=== PATIENT | male | born 1965 | race Caucasian/White ===

== ENCOUNTER → 2017-10-02 16:57 | Outpatient (CLI) | payer OTHER, SELFPAY ==
[2017-10-02 17:12] LABS: Absolute Lymphocyte Count 0.97 X10^3/ul (0.83-4.51); Absolute Neutrophil Count 7.9 X10^3/uL (2.0-7.7); Basophil# 0.05 X10^3/uL; Basophil% 0.5 % (0-1); Eosinophil# 0.71 X10^3/uL; Eosinophils% 6.7 % (0-5); Hematocrit 49.7 % (40-54); Hemoglobin 16.6 g/dl (13.0-16.5); Lymphocyte # 0.97 X10^3/ul (4.0); Lymphocyte % 9.2 % (19-41); Mean Corp Hgb Conc 33.4 g/gl (32-36); Mean Corpuscular Hgb 31.5 pg (27.0-32.0); Mean Corpuscular Volume 94.3 fL (80-94); Mean Platelet Vol. 11.7 fl (6.2-12.0); Monocyte# 0.93 X10^3/uL; Monocyte% 8.8 % (0-10); Neutrophil # 7.91 X10^3/uL (2.7-7.7); Neutrophil % 74.5 % (47-70); Platelet Count 270 K/mm3 (150-450); RBC Distribution Width CV 14.7 % (11.6-14.6); RBC Distribution Width SD 49.8 fl (35.1-43.9); Red Blood Count 5.27 M/mm3 (4.6-6.2); White Blood Count 10.6 K/mm3 (4.4-11.0)
[2017-10-02 17:16] LABS: POSITIVE COUNT NO; POSITIVE DIFFERENTIAL NO; POSITIVE MORPHOLOGY NO
[2017-10-02 17:34] LABS: PSA,Total - Annual Screen 1.92 ng/mL (0.00-4.00)
== END ==
PROVIDERS: Visit Provider Nurse Practitioner
DX: E29.1 Testicular hypofunction (principal)
CPT/HCPCS: 84153; 84403; 85025; G0103

== ENCOUNTER → 2017-11-13 07:58 | Outpatient (CLI) | payer OTHER, SELFPAY ==
[2017-11-13 14:07] LABS: Absolute Lymphocyte Count 0.72 X10^3/ul (0.83-4.51); Absolute Neutrophil Count 7.2 X10^3/uL (2.0-7.7); Basophil# 0.04 X10^3/uL; Basophil% 0.4 % (0-1); Eosinophils% 4.5 % (0-5); Hematocrit 52.1 % (40-54); Hemoglobin 17.4 g/dl (13.0-16.5); Lymphocyte # 0.72 X10^3/ul (4.0); Lymphocyte % 8.1 % (19-41); Mean Corp Hgb Conc 33.4 g/gl (32-36); Mean Corpuscular Hgb 31.6 pg (27.0-32.0); Mean Corpuscular Volume 94.6 fL (80-94); Mean Platelet Vol. 11.9 fl (6.2-12.0); Monocyte# 0.58 X10^3/uL; Monocyte% 6.5 % (0-10); Neutrophil # 7.16 X10^3/uL (2.7-7.7); Neutrophil % 80.2 % (47-70); Platelet Count 259 K/mm3 (150-450); RBC Distribution Width CV 13.8 % (11.6-14.6); RBC Distribution Width SD 47.3 fl (35.1-43.9); Red Blood Count 5.51 M/mm3 (4.6-6.2); White Blood Count 8.9 K/mm3 (4.4-11.0)
[2017-11-13 14:12] LABS: POSITIVE COUNT NO; POSITIVE DIFFERENTIAL NO; POSITIVE MORPHOLOGY NO
== END ==
PROVIDERS: Referring Provider Nurse Practitioner; Visit Provider Nurse Practitioner
DX: E29.1 Testicular hypofunction (principal)
CPT/HCPCS: 84403; 85025

== ENCOUNTER → 2017-12-18 16:01 | Outpatient (CLI) | payer OTHER, SELFPAY ==
[2017-12-18 16:51] LABS: Absolute Lymphocyte Count 0.78 X10^3/ul (0.83-4.51); Absolute Neutrophil Count 7.1 X10^3/uL (2.0-7.7); Basophil# 0.05 X10^3/uL; Basophil% 0.5 % (0-1); Eosinophil# 0.42 X10^3/uL; Eosinophils% 4.4 % (0-5); Hematocrit 52.5 % (40-54); Hemoglobin 17.3 g/dl (13.0-16.5); Lymphocyte # 0.78 X10^3/ul (4.0); Lymphocyte % 8.2 % (19-41); Mean Corpuscular Hgb 30.9 pg (27.0-32.0); Mean Corpuscular Volume 93.9 fL (80-94); Mean Platelet Vol. 11.7 fl (6.2-12.0); Monocyte# 1.03 X10^3/uL; Monocyte% 10.9 % (0-10); Neutrophil # 7.11 X10^3/uL (2.7-7.7); Neutrophil % 75.3 % (47-70); POSITIVE COUNT NO; POSITIVE DIFFERENTIAL NO; POSITIVE MORPHOLOGY NO; Platelet Count 232 K/mm3 (150-450); RBC Distribution Width CV 15.7 % (11.6-14.6); RBC Distribution Width SD 53.2 fl (35.1-43.9); Red Blood Count 5.59 M/mm3 (4.6-6.2); White Blood Count 9.5 K/mm3 (4.4-11.0)
== END ==
PROVIDERS: Referring Provider Nurse Practitioner; Visit Provider Nurse Practitioner
DX: E29.1 Testicular hypofunction (principal)
CPT/HCPCS: 84153; 84403; 85025

== ENCOUNTER → 2018-01-04 22:19 | Outpatient (CLI) | payer OTHER, SELFPAY ==
[2018-01-04 18:38] VITALS: BMI 31.3
[2018-01-04 23:21] LABS: Cholesterol 266 mg/dL (200); High Density Lipoprotein 37 mg/dL; Triglycerides 320 mg/dL; Very Low Density Lipoprotein 64 mg/dL (5-40)
--- OUTSIDE RECORDS SUMMARY | 2018-03-02 10:33 | XMS RPT_ITS ---
:1965 Author Organization [facility] Care Team Providers Name Role Phone Sony Perez Attending Unavailable PROVIDER, UNKNOWN Referring Unavailable Machelle Espitia Primary Care Unavailable Wing Espitiaa CONTROL SYSTEMS SPECIALIST-C Attending Unavailable Espitia, Machelle CONTROL SYSTEMS SPECIALIST-C Attending Unavailable Espitia, Machelle CONTROL SYSTEMS SPECIALIST-C Referring Unavailable Espitia, Machelle CONTROL SYSTEMS SPECIALIST-C Attending Unavailable Espitia, Machelle CONTROL SYSTEMS SPECIALIST-C Referring Unavailable Espitia, Machelle CONTROL SYSTEMS SPECIALIST-C Attending Unavailable Espitia, Machelle CONTROL SYSTEMS SPECIALIST-C Referring Unavailable PROBLEMS PROBLEMS DATE TYPE CONDITION / CODE ATTENDING STATUS SOURCE 01/05/2018 Unknown E78.00 - Pure Espitia, Active [facility] hypercholesterolem [place] [employer] SYSTEMS SPECIALIST-C Community ia, unspecified / Hospital E78.00(ICD-10) Repository 12/20/2017 Unknown 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, 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 / Machelle CONTROL SYSTEMS SPECIALIST-C Community E29.1(ICD-10) Hospital Repository 04/18/2017 Admitting Acute bronchitis, Tricaso, Active [facility] Diagnosis unspecified / [facility] J20.9(ICD-10) Repository 04/18/2017 Admitting Wheezing / Tricaso, Active [facility] Diagnosis R06.2(ICD-10) [facility] Repository 04/18/2017 Admitting Cough / Tricaso, Active [facility] Diagnosis R05(ICD-10) [facility] Repository 04/18/2017 Admitting Essential Tricaso, Active [facility] Diagnosis (primary) [facility] hypertension / Repository I10(ICD-10) 04/18/2017 Admitting Allergy status to Tricaso, Active [facility] Diagnosis narcotic agent [facility] status / Repository Z88.5(ICD-10) 04/18/2017 Admitting Allergy status to Tricaso, Active [facility] Diagnosis oth drug/meds/biol [facility] subst status / Repository Z88.8(ICD-10) PROCEDURES PROCEDURES No Procedure Records FoundRESULTS RESULTS OFFICE VISIT Observed: 01/13/2018 Status: F Source: [place] 8:25 PM [facility] RE[facility] [address] [place] [address] OFFICE VISIT Date of Service: 01/13/18 MR#: [id number] Acct: [id number] Name: JOSE JOHNSON Rep #: [id number] : 1965 Provider: MARY Espitia Age/Sex: 52/M Location: [facility] Status: Signed Intake Vital Signs01/13/18 Height 5 ft 9 in 01/13/18 Weight: 163 lb Intake Visit Reasons: TEST INJ #3 Allergies lisinopril Allergy (Intermediate, Verified 09/04/17 10:27) cough codeine Adverse Reaction (Verified 09/03/17 15:55) STOMACH PAIN Medications alprazolam 0.5 mg tablet 0.5 mg PO BID PRN #60 tab 09/03/17 [Rx Confirmed 09/08/17] diazepam 5 mg/mL oral concentrate 1 mg PO BID-QID PRN 09/04/17 [History Confirmed 09/08/17] escitalopram 10 mg tablet 10 mg PO QDAY 09/04/17 [History Confirmed 09/08/17] ipratropium-albuterol 0.5 mg-3 mg(2.5 mg base)/3 mL nebulization soln 3 ml INHALATION Q8H 09/04/17 [History Confirmed 09/08/17] krill fsj-mf-6-lms-vdj-prswyciknjxtb 500 mg-115 mg-30 mg-64 mg capsule cap PO 09/04/17 [History Confirmed 09/08/17] multivitamin capsule 1 cap PO QDAY 09/04/17 [History Confirmed 09/08/17] losartan 50 mg tablet 50 mg PO QDAY #60 tab 01/04/18 [Rx Confirmed 01/04/18] tramadol 50 mg tablet 50 mg PO Q8H #90 tab 01/04/18 [Rx Confirmed 01/04/18] azithromycin 250 mg tablet 250 mg PO QDAY 5 Days #6 tab 01/13/18 [Rx Confirmed 01/13/18] prednisone 10 mg tablet 20 mg PO DAILY 7 Days #14 tab 01/13/18 [Rx Confirmed 01/13/18] PFSH Medical History Anxiety (Acute) Diverticulitis (Acute) L knee meniscus (Acute) Lower back pain (Acute) Pain in left acromioclavicular joint (Acute) Surgical History History of appendectomy (Acute) Family History Mother CAD (coronary artery disease) COPD (chronic obstructive pulmonary disease) Heart disease Hypertension Myocardial infarction Sudden cardiac Father Cancer Hypertension Brother Cancer Hypertension Grandfather Sudden cardiac Uncle Heart disease Social History adopted: No household members: spouse housing: house number of children: 0 current occupational status: other current occupation: [employer] current occupational exposures/hazards: No pets and animals: Yes leisure activities: sports, exercise, music, games, hunting, fishing, reading, volunteer work details: [facility] [facility] [employer] history of recent travel: Yes other: [facility] Smoking Status: Never smoker second hand exposure: Yes quit status: has quit before alcohol intake: current alcohol intake frequency: a few times a week Alcohol type: wine substance use type: does not use well-balanced diet: about half the time caffeine: Yes eating out: 1-3 times/week during the past year weight has: remained stable what type of physical activity do you participate in: walking, swimming, weight training frequency: 3-4 times per week duration: 45-60 minutes/day seatbelt use: always do you feel safe at home: Yes HPI HPI (General) HPI HPI: JOSE JOHNSON, is a 52 M who presents to the office today for chest congestion . Using albuterol treatment . ROS Const Constitutional: Positive for fever(s) Eyes Eyes: Positive for discharge ENT ENT: Positive for ear pain, post nasal drip and hoarseness Exam Const Constitutional: Yes cooperative Nutritional Appearance: Yes average body habitus Limitations: Yes altered mental status HENMT Head: Yes normocephalic Ear: Yes hearing grossly normal bilaterally TM-Right: red TM-Left: normal, wax Pinna-Right: within normal limits Pinna-Left: within normal limits Face: Yes normal facial exam Nose: Yes external nose normal Mouth: Yes oral mucosae normal Throat: Yes posterior oropharynx normal Neck Neck: normal visual inspection Lymphadenopathy: Yes cervical Eyes General: Yes appearance normal, both eyes and all related structures Visual Lino: Yes normal visual lino by confrontation Periorbital: Yes periorbital findings normal Chest Chest palpation AND inspection: Yes normal inspection of the chest Breast Inspection: Yes normal inspection of the breasts Breast Palpation: No normal palpation of the breasts Cardio Palpitation: Yes normal PMI Rate: Yes regular rate Rhythm: Yes regular rhythm GI Inspection: Yes normal to inspection Auscultation: Yes normal bowel sounds Percussion: Yes normal to percussion Musc Cervical Spine: Yes cervical ROM normal Thoracic/Lumbar Spine: Yes thoracic and lumbar spine normal to inspection Skin General: no rashes or lesions noted Lesions: Yes no lesions Rash: Yes no rashes Extrem General: Yes normal to inspection Neuro General: Yes CN's II-XI intact bilaterally Cranial Nerves: Yes CN's II-XI intact bilaterally Office Meds testosterone cypionate Performing Provider: ASIM Ayala Administered by: Tanya Jackson on 01/13/18 18:22 Dose Route Admin Location Lot Number Expiration Date NDC Sustainability Project Coordinator 100 mg IM RIGHT ARM [id number] 09/09/19 8900-7152-12 NuLabel Assessment AND Plan Problems 1. Right acute serous otitis media, recurrence not specified H65.01 2. Acute non-recurrent maxillary sinusitis J01.00 Patient Instructions Take the antibiotics till gone with food push the fluids zyrtec 10 mg orally 2 x a day for 5-7 days then once day Orders Orders: Medications New: azithromycin 2 po qd for 1 day then 1 po q250 mg PO QDAY 5 days 6 tabs 0RF d for 4 days with food or after eating Discontinued: testosterone cypionate Discontinued Reason: [id number] mg (0.5 mL) IM ONCE #1 0RF E29.1 Medication has been Documented as given Coding Level of Care Code Off vis,est,level 3 Diagnoses Right acute serous otitis media, recurrence not specified H65.01 Chronicity: acute Otitis media type: serous Recurrence: not specified as recurrent Acute non-recurrent maxillary sinusitis J01.00 Chronicity: acute Recurrence: non-recurrent 01/13/182024 <Electronically signed by Machelle DAILEY> Date Machelle DAILEY CC: OFFICE VISIT Observed: 01/05/2018 Status: F Source: [place] 12:59 PM [facility] REPOSIT[facility] [address] [place] [address] OFFICE VISIT Date of Service: 01/04/18 MR#: [id number] Acct: [id number] Name: JOES JOHNSON Rep #: [id number] : 1965 Provider: MARY Espitia Age/Sex: 52/M Location: [facility] Status: Signed Intake Vital Signs01/04/18 Height 5 ft 9 in 01/04/18 Weight: 212 lb Intake Visit Reasons: RX REFILLS Allergies lisinopril Allergy (Intermediate, Verified 09/04/17 10:27) cough codeine Adverse Reaction (Verified 09/03/17 15:55) STOMACH PAIN Medications alprazolam 0.5 mg tablet 0.5 mg PO BID PRN #60 tab 09/03/17 [Rx Confirmed 09/08/17] diazepam 5 mg/mL oral concentrate 1 mg PO BID-QID PRN 09/04/17 [History Confirmed 09/08/17] escitalopram 10 mg tablet 10 mg PO QDAY 09/04/17 [History Confirmed 09/08/17] ipratropium-albuterol 0.5 mg-3 mg(2.5 mg base)/3 mL nebulization soln 3 ml INHALATION Q8H 09/04/17 [History Confirmed 09/08/17] krill eai-dn-7-gxa-ozd-lutntyxalpuih 500 mg-115 mg-30 mg-64 mg capsule cap PO 09/04/17 [History Confirmed 09/08/17] multivitamin capsule 1 cap PO QDAY 09/04/17 [History Confirmed 09/08/17] losartan 50 mg tablet 50 mg PO QDAY #60 tab 01/04/18 [Rx Confirmed 01/04/18] tramadol 50 mg tablet 50 mg PO Q8H #90 tab 01/04/18 [Rx Confirmed 01/04/18] PFSH Medical History Anxiety (Acute) Diverticulitis (Acute) L knee meniscus (Acute) Lower back pain (Acute) Pain in left acromioclavicular joint (Acute) Surgical History History of appendectomy (Acute) Family History Mother CAD (coronary artery disease) COPD (chronic obstructive pulmonary disease) Heart disease Hypertension Myocardial infarction Sudden cardiac Father Cancer Hypertension Brother Cancer Hypertension Grandfather Sudden cardiac Uncle Heart disease Social History adopted: No household members: spouse housing: house number of children: 0 current occupational status: other current occupation: [employer] current occupational exposures/hazards: No pets and animals: Yes leisure activities: sports, exercise, music, games, hunting, fishing, reading, volunteer work details: [employer] [facility] [employer] history of recent travel: Yes other: [employer] Smoking Status: Never smoker second hand exposure: Yes quit status: has quit before alcohol intake: current alcohol intake frequency: a few times a week Alcohol type: wine substance use type: does not use well-balanced diet: about half the time caffeine: Yes eating out: 1-3 times/week during the past year weight has: remained stable what type of physical activity do you participate in: walking, swimming, weight training frequency: 3-4 times per week duration: 45-60 minutes/day seatbelt use: always do you feel safe at home: Yes HPI HPI (General) HPI HPI: JOSE JOHNSON, is a 52 M who presents to the office today for medication refill and labs drawn today ROS Const Constitutional: No anorexia, body ache, chills, excessive sweating, fatigue, fever(s), frequent falls, headache(s), decreased energy, malaise, night sweats, snoring, weakness, weight change, sleep problems, abnormal sleep pattern, change in appetite or other Eyes Eyes: No blurry vision, change in vision, double vision, discharge, dry eyes, bulging eyes, floaters, visual disturbances, eye pain, light sensitivity, spots in vision, tunnel vision or other ENT ENT: No headache(s), abnormal hearing, ear pain, ear discharge, ear pressure, hearing loss, tinnitus, dizziness/vertigo, balance problems, nosebleed/epistaxis, nasal congestion, nasal obstruction, nose pain, sinus pressure, sinus pain, nasal discharge, post nasal drip, facial pain, dental pain, dry mouth, difficulty swallowing, bad breath, hoarseness, lip swelling, mouth lesions, mouth pain, neck pain, sore throat, tongue swelling, throat swelling or other Resp Respiratory: No snoring, cough, change in phlegm color, chest congestion, excessive phlegm production, hemoptysis, pain on inspiration, shortness of breath, pain with cough, stridor, wheezing or other Cardio Cardiology: No excessive sweating, chest pain at rest, chest pain with exertion, leg pain with exertion, shortness of breath, dyspnea on exertion, generalized swelling, irregular heart rhythm, lightheadedness, orthopnea, radiating jaw, neck or arm pain, fast heart rate, slow heart rate, palpitations or other Gastro GI: No other, No Difficulty Swallowing, No abdominal pain, No belching, No bloating, No change in bowel habits, No change in stool character, No coffee ground emesis, No constipation, No cramping, No diarrhea, No heartburn, No feeling full early, No excessive flatus, No incontinent of stools, No Vomiting blood/hematemesis, No Blood in stool, No loose stools, No Black,tarry stools, No nausea/dyspepsia, No pain with swallowing, No vomiting, No hemorrhoids, No rectal pain Genitourinary: No urinary frequency, difficulty urinating, burning urination, painful urination, urinary urgency or blood in urine Musc Musculoskeletal: No neck pain, abnormal walking, joint pain, back pain, deformity, joint swelling, limited range of motion, loss of height, muscle cramps, muscle weakness, decreased muscle mass, body aches, numbness, radiating pain into limb, stiffness, tingling or other Skin Skin: No acne, hair loss, change in hair, nail changes, boil, change in skin color, dry skin, redness, excessive hair growth, yellowing of the skin, lesions, itching, rash, skin pain, skin ulcer, sores, skin swelling, wounds or other Breast Breast: No other Neuro Neurology: No frequent falls, headache(s), weakness, visual disturbances, abnormal hearing, abnormal walking, numbness, tingling, abnormal movements, abnormal speech, behavioral changes, confusion, unsteady gait/balance, dizziness, lack of coordination, loss of vision, memory loss, restless legs, fainting, tremor(s) or other Psych Psychiatric: No abnormal sleep pattern, No change in appetite, No behavioral changes, No confusion, No memory loss, No lack of enjoyment, No anxiety, No depression, No difficulty concentrating, No hopelessness, No irritability, No mood swings, No panic attacks, No paranoia, No Thoughts of harming yourself/Others, No hallucinations, No other Endo Endo: No excessive sweating, No fatigue, No other Aller/Imm Allergy/Immunologic: No lip swelling, tongue swelling, throat swelling, wheezing or itchy eyes Exam Const Constitutional: Yes cooperative, Yes healthy appearing Orientation: Yes alert, awake and oriented x3 HENMT Head: Yes normocephalic Ear: Yes hearing grossly normal bilaterally Neck Neck: normal visual inspection Thyroid: thyroid normal Eyes General: Yes appearance normal, both eyes and all related structures Chest Chest palpation AND inspection: Yes normal inspection of the chest Resp Effort AND Inspection: No stridor Auscultation: Yes clear to auscultation bilaterally Cardio Palpitation: Yes normal PMI Rate: Yes regular rate Rhythm: Yes regular rhythm GI Inspection: Yes normal to inspection Auscultation: Yes normal bowel sounds Rectal Exam: No hemorrhoids Musc Cervical Spine: Yes cervical ROM normal Thoracic/Lumbar Spine: Yes thoracic and lumbar spine normal to inspection Skin General: no rashes or lesions noted Lesions: Yes no lesions Extrem General: Yes normal to inspection Neuro General: Yes alert and oriented x3 Motor: No weakness Psych Appearance: Positive grossly normal Mood: Positive congruent mood Affect: Positive normal affect Assessment AND Plan Problems 1. Disorder of AC joint of shoulder M19.019 2. Essential hypertension I10 Patient Instructions Take the medication as prescribed follow up as needed Orders Orders: Medications New: Changed: Coding Level of Care Code Off vis,est,level 3 Diagnoses Disorder of AC joint of shoulder M19.019 Essential hypertension I10 Hypertension type: essential hypertension 01/05/18 1259 <Electronically signed by Machelle DAILEY> Date Machelle DAILEY CC: LIPID PROFILE Collected: 01/04/2018 Status: F Source: [place] 7:00 PM [facility] REPOSITORY TYPE CODE TESTS RESULT OUT OF RANGE REFERENCE UNITS LAB L501.4900 200 mg/dL High CHOL 266 Result Comment: <200 mg/dL Desirable 200-240 mg/dL Borderline >240 mg/dL High Risk LAB L501.5000 mg/dL High TRIG 320 Result Comment: The drugs N-Acetylcysteine and Metamizole may falsely depress this assay. Serum Triglycerides Reference Interval Normal <150 mg/dL Borderline high 150 - 199 mg/dL High 200 - 499 mg/dL Very High > or = 500 mg/dL LAB L501.6400 mg/dL Low HDL 37 Result Comment: The drugs N-Acetylcysteine and Metamizole may falsely depress this assay. Reference Range HDL <40 mg/dL Low HDL Cholesterol HDL >or= 60 mg/dL High HDL Cholesterol LAB L501.6500 0-130 mg/dL High LDL 165 LAB L501.6600 5-40 mg/dL High VLDL 64 Performed By: #### L500.4100 #### [facility] [address] [place], [address] OFFICE VISIT Observed: 01/04/2018 Status: F Source: [place] 12:59 PM [facility] REPOS[facility] [address] [place] [address] OFFICE VISIT Date of Service: 01/03/18 MR#: [id number] Acct: [id number] Name: JOSE JOHNSON Rep #: [id number] : 1965 Provider: MARY Espitia Age/Sex: 52/M Location: [facility] Status: Signed Intake Intake Visit Reasons: TEST INJ #2 Allergies lisinopril Allergy (Intermediate, Verified 09/04/17 10:27) cough codeine Adverse Reaction (Verified 09/03/17 15:55) STOMACH PAIN Medications alprazolam 0.5 mg tablet 0.5 mg PO BID PRN #60 tab 09/03/17 [Rx Confirmed 09/08/17] diazepam 5 mg/mL oral concentrate 1 mg PO BID-QID PRN 09/04/17 [History Confirmed 09/08/17] escitalopram 10 mg tablet 10 mg PO QDAY 09/04/17 [History Confirmed 09/08/17] ipratropium-albuterol 0.5 mg-3 mg(2.5 mg base)/3 mL nebulization soln 3 ml INHALATION Q8H 09/04/17 [History Confirmed 09/08/17] krill soa-lh-3-aay-xdc-gybwubtzvixlr 500 mg-115 mg-30 mg-64 mg capsule cap PO 09/04/17 [History Confirmed 09/08/17] losartan 50 mg tablet 50 mg PO QDAY 09/04/17 [History Confirmed 09/08/17] multivitamin capsule 1 cap PO QDAY 09/04/17 [History Confirmed 09/08/17] tramadol 50 mg tablet 50 mg PO Q6H 09/04/17 [History Confirmed 09/08/17] Office Meds testosterone cypionate Performing Provider: ASIM Ayala Administered by: Ginger Iqbal on 01/03/18 17:59 Dose Route Admin Location Lot Number Expiration Date NDC Sustainability Project Coordinator 100 mg IM R ARM [id number] 09/09/19 6488-9758-81 NuLabel Comments: E29.1 Assessment AND Plan Problems 1. Testosterone deficiency in male E29.1 Orders Orders: Medications Discontinued: testosterone cypionate Discontinued Reason: [id number] mg (0.5 mL) IM ONCE #1 0RF E29.1 Medication has been Documented as given 01/04/18 1259 <Electronically signed by aMchelle DAILEY> Date Machelle DAILEY CC: OFFICE VISIT Observed: 12/22/2017 Status: F Source: [place] 8:36 PM [facility] REPOSITORY After Hours [facility] [address] [place] [address] OFFICE VISIT Date of Service: 12/22/17 MR#: [id number] Acct: [id number] Name: JOSE JOHNSON Rep #: [id number] : 1965 Provider: MARY Espitia Age/Sex: 52/M Location: [facility] Status: Signed Intake Intake Visit Reasons: TEST INJ #1 Allergies lisinopril Allergy (Intermediate, Verified 09/04/17 10:27) cough codeine Adverse Reaction (Verified 09/03/17 15:55) STOMACH PAIN Medications alprazolam 0.5 mg tablet 0.5 mg PO BID PRN #60 tab 09/03/17 [Rx Confirmed 09/08/17] diazepam 5 mg/mL oral concentrate 1 mg PO BID-QID PRN 09/04/17 [History Confirmed 09/08/17] escitalopram 10 mg tablet 10 mg PO QDAY 09/04/17 [History Confirmed 09/08/17] ipratropium-albuterol 0.5 mg-3 mg(2.5 mg base)/3 mL nebulization soln 3 ml INHALATION Q8H 09/04/17 [History Confirmed 09/08/17] krill kdy-ys-7-ckh-luh-wiuyjgppokuaz 500 mg-115 mg-30 mg-64 mg capsule cap PO 09/04/17 [History Confirmed 09/08/17] losartan 50 mg tablet 50 mg PO QDAY 09/04/17 [History Confirmed 09/08/17] multivitamin capsule 1 cap PO QDAY 09/04/17 [History Confirmed 09/08/17] tramadol 50 mg tablet 50 mg PO Q6H 09/04/17 [History Confirmed 09/08/17] PFSH Medical History Anxiety (Acute) Diverticulitis (Acute) L knee meniscus (Acute) Lower back pain (Acute) Pain in left acromioclavicular joint (Acute) Surgical History History of appendectomy (Acute) Family History Mother CAD (coronary artery disease) COPD (chronic obstructive pulmonary disease) Heart disease Hypertension Myocardial infarction Sudden cardiac Father Cancer Hypertension Brother Cancer Hypertension Grandfather Sudden cardiac Uncle Heart disease Social History adopted: No household members: spouse housing: house number of children: 0 current occupational status: other current occupation: [employer] current occupational exposures/hazards: No pets and animals: Yes leisure activities: sports, exercise, music, games, hunting, fishing, reading, volunteer work details: [employer] history of recent travel: Yes other: [facility] Smoking Status: Never smoker second hand exposure: Yes quit status: has quit before alcohol intake: current alcohol intake frequency: a few times a week Alcohol type: wine substance use type: does not use well-balanced diet: about half the time caffeine: Yes eating out: 1-3 times/week during the past year weight has: remained stable what type of physical activity do you participate in: walking, swimming, weight training frequency: 3-4 times per week duration: 45-60 minutes/day seatbelt use: always do you feel safe at home: Yes HPI HPI (General) HPI HPI: JOSE JOHNSON, is a 52 M who presents to the office today for Coding Level of Care Code No Charge 12/22/172035 <Electronically signed by Machelle DAILEY> Date Machelle DAILEY CC: OFFICE VISIT Observed: 12/18/2017 Status: F Source: [place] 3:36 PM [facility] REPOSIT[facility] [address] [place] [address] OFFICE VISIT Date of Service: 12/18/17 MR#: [id number] Acct: [id number] Name: JOSE JOHNSON Rep #: [id number] : 1965 Provider: MARY Espitia Age/Sex: 52/M Location: [facility] Status: Signed Intake Intake Visit Reasons: TEST Allergies lisinopril Allergy (Intermediate, Verified 09/04/17 10:27) cough codeine Adverse Reaction (Verified 09/03/17 15:55) STOMACH PAIN Medications alprazolam 0.5 mg tablet 0.5 mg PO BID PRN #60 tab 09/03/17 [Rx Confirmed 09/08/17] diazepam 5 mg/mL oral concentrate 1 mg PO BID-QID PRN 09/04/17 [History Confirmed 09/08/17] escitalopram 10 mg tablet 10 mg PO QDAY 09/04/17 [History Confirmed 09/08/17] ipratropium-albuterol 0.5 mg-3 mg(2.5 mg base)/3 mL nebulization soln 3 ml INHALATION Q8H 09/04/17 [History Confirmed 09/08/17] krill aev-xy-0-mit-icd-yngkgrmdmvmil 500 mg-115 mg-30 mg-64 mg capsule cap PO 09/04/17 [History Confirmed 09/08/17] losartan 50 mg tablet 50 mg PO QDAY 09/04/17 [History Confirmed 09/08/17] multivitamin capsule 1 cap PO QDAY 09/04/17 [History Confirmed 09/08/17] tramadol 50 mg tablet 50 mg PO Q6H 09/04/17 [History Confirmed 09/08/17] PFSH Medical History Anxiety (Acute) Diverticulitis (Acute) L knee meniscus (Acute) Lower back pain (Acute) Pain in left acromioclavicular joint (Acute) Surgical History History of appendectomy (Acute) Family History Mother CAD (coronary artery disease) COPD (chronic obstructive pulmonary disease) Heart disease Hypertension Myocardial infarction Sudden cardiac Father Cancer Hypertension Brother Cancer Hypertension Grandfather Sudden cardiac Uncle Heart disease Social History adopted: No household members: spouse housing: house number of children: 0 current occupational status: other current occupation: [employer] current occupational exposures/hazards: No pets and animals: Yes leisure activities: sports, exercise, music, games, hunting, fishing, reading, volunteer work details: [employer] history of recent travel: Yes other: [facility] Smoking Status: Never smoker second hand exposure: Yes quit status: has quit before alcohol intake: current alcohol intake frequency: a few times a week Alcohol type: wine substance use type: does not use well-balanced diet: about half the time caffeine: Yes eating out: 1-3 times/week during the past year weight has: remained stable what type of physical activity do you participate in: walking, swimming, weight training frequency: 3-4 times per week duration: 45-60 minutes/day seatbelt use: always do you feel safe at home: Yes HPI HPI (General) HPI HPI: JOSE JOHNSON, is a 52 M who presents to the office today for Assessment AND Plan Orders Orders: Coding Level of Care Code No Charge 12/18/17 1536 <Electronically signed by Machelle DAILEY> Date Machelle DAILEY CC: CBC W/DIFF, AUTOMATED Collected: 12/18/2017 Status: F Source: [place] 9:50 AM [facility] REPOSITORY TYPE CODE TESTS RESULT OUT OF RANGE REFERENCE UNITS LAB L100.1000 4.4-11.0 K/mm3 Normal WBC 9.5 LAB L100.1200 4.6-6.2 M/mm3 Normal RBC 5.59 LAB L100.1300 13.0-16.5 g/dl High HGB 17.3 LAB L100.1400 40-54 % Normal HCT 52.5 LAB L100.1500 80-94 fL Normal MCV 93.9 LAB L100.1600 27.0-32.0 pg Normal MCH 30.9 LAB L100.1700 32-36 g/gl Normal MCHC 33.0 LAB L100.1810 11.6-14.6 % High RDW CV 15.7 LAB L100.1820 35.1-43.9 fl High RDW SD 53.2 LAB L100.1900 150-450 K/mm3 Normal PLT 232 LAB L100.2000 6.2-12.0 fl Normal MPV 11.7 LAB L100.2100 47-70 % High NEUT% 75.3 LAB L100.2200 19-41 % Low LY% 8.2 LAB L100.2300 0-10 % High MONO% 10.9 LAB L100.2400 0-5 % Normal EO% 4.4 LAB L100.2500 0-1 % Normal BASO% 0.5 LAB L100.2550 0.0-0.9 % Normal IM GRAN % 0.700 Result Comment: IG% - Immature Granulocytes (promyelocytes, myelocytes and metamyelocytes) > 1% indicates that a LEFT SHIFT is Present. LAB L100.2620 2.0-7.7 X10 3/uL Normal Absolute Neut 7.1 LAB L100.2720 0.83-4.51 X10 3/ul Low Absolute Lymph 0.78 Performed By: #### L100.0100, L509.3000 #### [facility] [address] [place], [place], [id number] TESTOSTERONE, SERUM TOTAL Collected: 12/18/2017 Status: F Source: [place] 9:50 AM [facility] REPOSITORY TYPE CODE TESTS RESULT OUT OF REFERENCE UNITS RANGE LAB L509.3000 ng/dL Testosterone Normal 895.09 Result Comment: NORMAL REFERENCE RANGES MALE AGE <50 123.06 - 813.86 ng/dL MALE AGE >50 89.98 - 780.10 ng/dL FEMALE PREMENOPAUSE AGE 21 - 60 9.01 - 47.94 ng/dL FEMALE POSTMENOPAUSE AGE 45 - 89 <7.00 - 45.62 ng/dL REFERENCE RANGE AND METHODOLOGY CHANGED 01/27/2017 Performed By: #### L100.0100, L509.3000 #### [facility] [address] [facility] [place], [address] PSA,TOTAL- DIAGNOSTIC Collected: 12/18/2017 Status: F Source: [place] 9:50 AM [facility] REPOSITORY TYPE CODE TESTS RESULT OUT OF RANGE REFERENCE UNITS LAB L501.9940 0.0-4.0 ng/mL PSA, Normal DIAGNOSTIC 1.00 Result Comment: This test was performed using the TPSA assay method for the [employer] chemistry system. Values obtained with different assay methods cannot be used interchangably. When changing PSA assays in the course of monitoring a patient, additional sequential testing should be carried out to confirm baseline values. Performed By: #### L501.9940 #### [facility] [address] [place] [place], [address] OFFICE VISIT Observed: 12/10/2017 Status: F Source: [place] 5:59 PM [facility] REPOSITORY After Hours Family [facility] [address] [place] [address] OFFICE VISIT Date of Service: 12/10/17 MR#: [id number] Acct: [id number] Name: JOSE JOHNSON Rep #: [id number] : 1965 Provider: MARY Espitia Age/Sex: 52/M Location: [facility] Status: Signed Intake Intake Visit Reasons: TEST INJ #3 Allergies lisinopril Allergy (Intermediate, Verified 09/04/17 10:27) cough codeine Adverse Reaction (Verified 09/03/17 15:55) STOMACH PAIN Medications alprazolam 0.5 mg tablet 0.5 mg PO BID PRN #60 tab 09/03/17 [Rx Confirmed 09/08/17] diazepam 5 mg/mL oral concentrate 1 mg PO BID-QID PRN 09/04/17 [History Confirmed 09/08/17] escitalopram 10 mg tablet 10 mg PO QDAY 09/04/17 [History Confirmed 09/08/17] ipratropium-albuterol 0.5 mg-3 mg(2.5 mg base)/3 mL nebulization soln 3 ml INHALATION Q8H 09/04/17 [History Confirmed 09/08/17] krill ilm-pf-9-ish-avz-xasauretaagds 500 mg-115 mg-30 mg-64 mg capsule cap PO 09/04/17 [History Confirmed 09/08/17] losartan 50 mg tablet 50 mg PO QDAY 09/04/17 [History Confirmed 09/08/17] multivitamin capsule 1 cap PO QDAY 09/04/17 [History Confirmed 09/08/17] tramadol 50 mg tablet 50 mg PO Q6H 09/04/17 [History Confirmed 09/08/17] Office Meds testosterone cypionate Performing Provider: ASIM Ayala Administered by: ASIM Ayala on 12/10/17 17:57 Dose Route Admin Location Lot Number Expiration Date NDC Sustainability Project Coordinator 100 mg IM R deltoid [id number] 10/09/19 17059-69633 [facility] Assessment AND Plan Orders Orders: Medications Discontinued: testosterone cypionate Discontinued Reason: [id number] mg (0.5 mL) IM ONCE #1 0RF E29.1 Medication has been Documented as given 12/10/17 1759 <Electronically signed by Machelle DAILEY> Date Machelle DAILEY CC: OFFICE VISIT Observed: 12/01/2017 Status: F Source: [place] 1:37 PM [facility] REPOSITORY After Hours [facility] [address] [place] [address] OFFICE VISIT Date of Service: 11/29/17 MR#: [id number] Acct: [id number] Name: JOSE JOHNSON Rep #: [id number] : 1965 Provider: MARY Espitia Age/Sex: 52/M Location: [facility] Status: Signed Intake Intake Visit Reasons: test inj #2 Allergies lisinopril Allergy (Intermediate, Verified 09/04/17 10:27) cough codeine Adverse Reaction (Verified 09/03/17 15:55) STOMACH PAIN Medications alprazolam 0.5 mg tablet 0.5 mg PO BID PRN #60 tab 09/03/17 [Rx Confirmed 09/08/17] diazepam 5 mg/mL oral concentrate 1 mg PO BID-QID PRN 09/04/17 [History Confirmed 09/08/17] escitalopram 10 mg tablet 10 mg PO QDAY 09/04/17 [History Confirmed 09/08/17] ipratropium-albuterol 0.5 mg-3 mg(2.5 mg base)/3 mL nebulization soln 3 ml INHALATION Q8H 09/04/17 [History Confirmed 09/08/17] krill dhj-ei-9-lki-pkv-jkluyptjeyitq 500 mg-115 mg-30 mg-64 mg capsule cap PO 09/04/17 [History Confirmed 09/08/17] losartan 50 mg tablet 50 mg PO QDAY 09/04/17 [History Confirmed 09/08/17] multivitamin capsule 1 cap PO QDAY 09/04/17 [History Confirmed 09/08/17] tramadol 50 mg tablet 50 mg PO Q6H 09/04/17 [History Confirmed 09/08/17] Office Meds testosterone cypionate Performing Provider: ASIM Ayala Administered by: Tanya Jackson on 11/29/17 17:33 Dose Route Admin Location Lot Number Expiration Date NDC Sustainability Project Coordinator 200 mg IM left arm [id number] 09/09/19 4245-1408-70 [facility] Assessment AND Plan Orders Orders: Medications Discontinued: testosterone cypionate Discontinued Reason: [id number] mg (0.5 mL) IM ONCE #1 0RF E29.1 Medication has been Documented as given 12/01/17 1337 <Electronically signed by Machelle DAILEY> Date Machelle DAILEY CC: OFFICE VISIT Observed: 11/17/2017 Status: F Source: [place] 9:04 PM [facility] REPOSITORY After Hours Family [facility] [address] [place] [address] OFFICE VISIT Date of Service: 11/17/17 MR#: [id number] Acct: [id number] Name: JOSE JOHNSON Rep #: [id number] : 1965 Provider: MARY Espitia Age/Sex: 52/M Location: [facility] Status: Signed Intake Intake Visit Reasons: 10 inj Allergies lisinopril Allergy (Intermediate, Verified 09/04/17 10:27) cough codeine Adverse Reaction (Verified 09/03/17 15:55) STOMACH PAIN Medications alprazolam 0.5 mg tablet 0.5 mg PO BID PRN #60 tab 09/03/17 [Rx Confirmed 09/08/17] diazepam 5 mg/mL oral concentrate 1 mg PO BID-QID PRN 09/04/17 [History Confirmed 09/08/17] escitalopram 10 mg tablet 10 mg PO QDAY 09/04/17 [History Confirmed 09/08/17] ipratropium-albuterol 0.5 mg-3 mg(2.5 mg base)/3 mL nebulization soln 3 ml INHALATION Q8H 09/04/17 [History Confirmed 09/08/17] krill yar-aa-7-hpy-qqz-dtawanjkarwxf 500 mg-115 mg-30 mg-64 mg capsule cap PO 09/04/17 [History Confirmed 09/08/17] losartan 50 mg tablet 50 mg PO QDAY 09/04/17 [History Confirmed 09/08/17] multivitamin capsule 1 cap PO QDAY 09/04/17 [History Confirmed 09/08/17] tramadol 50 mg tablet 50 mg PO Q6H 09/04/17 [History Confirmed 09/08/17] PFSH Medical History Anxiety (Acute) Diverticulitis (Acute) L knee meniscus (Acute) Lower back pain (Acute) Pain in left acromioclavicular joint (Acute) Surgical History History of appendectomy (Acute) Family History Mother CAD (coronary artery disease) COPD (chronic obstructive pulmonary disease) Heart disease Hypertension Myocardial infarction Sudden cardiac Father Cancer Hypertension Brother Cancer Hypertension Grandfather Sudden cardiac Uncle Heart disease Social History adopted: No household members: spouse housing: house number of children: 0 current occupational status: other current occupation: [employer] current occupational exposures/hazards: No pets and animals: Yes leisure activities: sports, exercise, music, games, hunting, fishing, reading, volunteer work details: [facility] history of recent travel: Yes other: [facility] Smoking Status: Never smoker second hand exposure: Yes quit status: has quit before alcohol intake: current alcohol intake frequency: a few times a week Alcohol type: wine substance use type: does not use well-balanced diet: about half the time caffeine: Yes eating out: 1-3 times/week during the past year weight has: remained stable what type of physical activity do you participate in: walking, swimming, weight training frequency: 3-4 times per week duration: 45-60 minutes/day seatbelt use: always do you feel safe at home: Yes HPI HPI (General) HPI HPI: JOSE JOHNSON, is a 52 M who presents to the office today for Office Meds testosterone cypionate Performing Provider: ASIM Ayala Administered by: Ginger Iqbal on 11/17/17 18:28 Dose Route Admin Location Lot Number Expiration Date [place] Sustainability Project Coordinator 100 mg IM r arm [id number] 09/09/19 28829-12056 [facility] Assessment AND Plan Orders Orders: Medications Discontinued: testosterone cypionate Discontinued Reason: [id number] mg (0.5 mL) IM ONCE #1 0RF E29.1 Medication has been Documented as given Coding Level of Care Code No Charge 11/17/17 2104 <Electronically signed by Machelle DORADOC> Date Machelle DAILEY CC: CBC W/DIFF, AUTOMATED Collected: 11/13/2017 Status: F Source: [place] 2:00 PM [facility] REPOSITORY TYPE CODE TESTS RESULT OUT OF RANGE REFERENCE UNITS LAB L100.1000 4.4-11.0 K/mm3 Normal WBC 8.9 LAB L100.1200 4.6-6.2 M/mm3 Normal RBC 5.51 LAB L100.1300 13.0-16.5 g/dl High HGB 17.4 LAB L100.1400 40-54 % Normal HCT 52.1 LAB L100.1500 80-94 fL High MCV 94.6 LAB L100.1600 27.0-32.0 pg Normal MCH 31.6 LAB L100.1700 32-36 g/gl Normal MCHC 33.4 LAB L100.1810 11.6-14.6 % Normal RDW CV 13.8 LAB L100.1820 35.1-43.9 fl High RDW SD 47.3 LAB L100.1900 150-450 K/mm3 Normal PLT 259 LAB L100.2000 6.2-12.0 fl Normal MPV 11.9 LAB L100.2100 47-70 % High NEUT% 80.2 LAB L100.2200 19-41 % Low LY% 8.1 LAB L100.2300 0-10 % Normal MONO% 6.5 LAB L100.2400 0-5 % Normal EO% 4.5 LAB L100.2500 0-1 % Normal BASO% 0.4 LAB L100.2550 0.0-0.9 % Normal IM GRAN % 0.300 Result Comment: IG% - Immature Granulocytes (promyelocytes, myelocytes and metamyelocytes) > 1% indicates that a LEFT SHIFT is Present. LAB L100.2620 2.0-7.7 X10 3/uL Normal Absolute Neut 7.2 LAB L100.2720 0.83-4.51 X10 3/ul Low Absolute Lymph 0.72 Performed By: #### L100.0100, L509.3000 #### [facility] [address] [facility]. [place], [place], [address] TESTOSTERONE, SERUM TOTAL Collected: 11/13/2017 Status: F Source: [place] 2:00 PM [facility] REPOSITORY TYPE CODE TESTS RESULT OUT OF REFERENCE UNITS RANGE LAB L509.3000 ng/dL Testosterone Normal 254.38 Result Comment: NORMAL REFERENCE RANGES MALE AGE <50 123.06 - 813.86 ng/dL MALE AGE >50 89.98 - 780.10 ng/dL FEMALE PREMENOPAUSE AGE 21 - 60 9.01 - 47.94 ng/dL FEMALE POSTMENOPAUSE AGE 45 - 89 <7.00 - 45.62 ng/dL REFERENCE RANGE AND METHODOLOGY CHANGED 01/27/2017 Performed By: #### L100.0100, L509.3000 #### [facility] [address] [facility] [facility] [place], [place], [address] OFFICE VISIT Observed: 11/13/2017 Status: F Source: [place] 1:10 PM [facility] REPOSITORY After Hours Family [address] [address] OFFICE VISIT Date of Service: 11/13/17 MR#: [id number] Acct: [id number] Name: JOSE JOHNSON Rep #: [id number] : 1965 Provider: MARY Espitia Age/Sex: 52/M Location: [facility] Status: Signed Intake Intake Visit Reasons: CBC, PSA,TEST Allergies lisinopril Allergy (Intermediate, Verified 09/04/17 10:27) cough codeine Adverse Reaction (Verified 09/03/17 15:55) STOMACH PAIN Medications alprazolam 0.5 mg tablet 0.5 mg PO BID PRN #60 tab 09/03/17 [Rx Confirmed 09/08/17] diazepam 5 mg/mL oral concentrate 1 mg PO BID-QID PRN 09/04/17 [History Confirmed 09/08/17] escitalopram 10 mg tablet 10 mg PO QDAY 09/04/17 [History Confirmed 09/08/17] ipratropium-albuterol 0.5 mg-3 mg(2.5 mg base)/3 mL nebulization soln 3 ml INHALATION Q8H 09/04/17 [History Confirmed 09/08/17] krill qvz-cu-8-oic-uay-nlvgzrggtfpjl 500 mg-115 mg-30 mg-64 mg capsule cap PO 09/04/17 [History Confirmed 09/08/17] losartan 50 mg tablet 50 mg PO QDAY 09/04/17 [History Confirmed 09/08/17] multivitamin capsule 1 cap PO QDAY 09/04/17 [History Confirmed 09/08/17] tramadol 50 mg tablet 50 mg PO Q6H 09/04/17 [History Confirmed 09/08/17] PFSH Medical History Anxiety (Acute) Diverticulitis (Acute) L knee meniscus (Acute) Lower back pain (Acute) Pain in left acromioclavicular joint (Acute) Surgical History History of appendectomy (Acute) Family History Mother CAD (coronary artery disease) COPD (chronic obstructive pulmonary disease) Heart disease Hypertension Myocardial infarction Sudden cardiac Father Cancer Hypertension Brother Cancer Hypertension Grandfather Sudden cardiac Uncle Heart disease Social History adopted: No household members: spouse housing: house number of children: 0 current occupational status: other current occupation: [employer] current occupational exposures/hazards: No pets and animals: Yes leisure activities: sports, exercise, music, games, hunting, fishing, reading, volunteer work details: [employer] [facility] [facility] history of recent travel: Yes other: [place] [employer] Smoking Status: Never smoker second hand exposure: Yes quit status: has quit before alcohol intake: current alcohol intake frequency: a few times a week Alcohol type: wine substance use type: does not use well-balanced diet: about half the time caffeine: Yes eating out: 1-3 times/week during the past year weight has: remained stable what type of physical activity do you participate in: walking, swimming, weight training frequency: 3-4 times per week duration: 45-60 minutes/day seatbelt use: always do you feel safe at home: Yes HPI HPI (General) HPI HPI: JOSE JOHNSON, is a 52 M who presents to the office today for Assessment AND Plan Orders Orders: Coding Level of Care Code No Charge 11/13/17 1310 <Electronically signed by Machelle DAILEY> Date Machelle DAILEY CC: OFFICE VISIT Observed: 10/21/2017 Status: F Source: [place] 9:[address] [facility] [place] [place] After Hours Family Medicine [address] [place] [address] OFFICE VISIT Date of Service: 10/21/17 MR#: [id number] Acct: [id number] Name: JOSE JOHNSON Rep #: [id number] : 1965 Provider: MARY Espitia Age/Sex: 52/M Location: [facility] Status: Signed Intake Intake Visit Reasons: TEST INJ #3 Allergies lisinopril Allergy (Intermediate, Verified 09/04/17 10:27) cough codeine Adverse Reaction (Verified 09/03/17 15:55) STOMACH PAIN Medications alprazolam 0.5 mg tablet 0.5 mg PO BID PRN #60 tab 09/03/17 [Rx Confirmed 09/08/17] diazepam 5 mg/mL oral concentrate 1 mg PO BID-QID PRN 09/04/17 [History Confirmed 09/08/17] escitalopram 10 mg tablet 10 mg PO QDAY 09/04/17 [History Confirmed 09/08/17] ipratropium-albuterol 0.5 mg-3 mg(2.5 mg base)/3 mL nebulization soln 3 ml INHALATION Q8H 09/04/17 [History Confirmed 09/08/17] krill xuf-ft-8-dsy-lep-fslmtpclsgtwm 500 mg-115 mg-30 mg-64 mg capsule cap PO 09/04/17 [History Confirmed 09/08/17] losartan 50 mg tablet 50 mg PO QDAY 09/04/17 [History Confirmed 09/08/17] multivitamin capsule 1 cap PO QDAY 09/04/17 [History Confirmed 09/08/17] tramadol 50 mg tablet 50 mg PO Q6H 09/04/17 [History Confirmed 09/08/17] PFSH Medical History Anxiety (Acute) Diverticulitis (Acute) L knee meniscus (Acute) Lower back pain (Acute) Pain in left acromioclavicular joint (Acute) Surgical History History of appendectomy (Acute) Family History Mother CAD (coronary artery disease) COPD (chronic obstructive pulmonary disease) Heart disease Hypertension Myocardial infarction Sudden cardiac Father Cancer Hypertension Brother Cancer Hypertension Grandfather Sudden cardiac Uncle Heart disease Social History adopted: No household members: spouse housing: house number of children: 0 current occupational status: other current occupation: [employer] current occupational exposures/hazards: No pets and animals: Yes leisure activities: sports, exercise, music, games, hunting, fishing, reading, volunteer work details: [facility] [facility] history of recent travel: Yes other: [facility] Smoking Status: Never smoker second hand exposure: Yes quit status: has quit before alcohol intake: current alcohol intake frequency: a few times a week Alcohol type: wine substance use type: does not use well-balanced diet: about half the time caffeine: Yes eating out: 1-3 times/week during the past year weight has: remained stable what type of physical activity do you participate in: walking, swimming, weight training frequency: 3-4 times per week duration: 45-60 minutes/day seatbelt use: always do you feel safe at home: Yes HPI HPI (General) HPI HPI: JOSE JOHNSON, is a 52 M who presents to the office today for Coding Level of Care Code No Charge 10/21/17 2675 <Electronically signed by Machelle DAILEY> Date Machelle DAILEY CC: OFFICE VISIT Observed: 10/14/2017 Status: F Source: [place] 1:05 PM [facility] REPOSITORY After Hours Family Medicine [address] [place] [address] OFFICE VISIT Date of Service: 10/13/17 MR#: [id number] Acct: [id number] Name: JOSE JOHNSON Rep #: [id number] : 1965 Provider: Naa Nurse, RN Age/Sex: 52/M Location: [facility] Status: Signed Intake Intake Visit Reasons: TEST INJ Allergies lisinopril Allergy (Intermediate, Verified 09/04/17 10:27) cough codeine Adverse Reaction (Verified 09/03/17 15:55) STOMACH PAIN Medications alprazolam 0.5 mg tablet 0.5 mg PO BID PRN #60 tab 09/03/17 [Rx Confirmed 09/08/17] diazepam 5 mg/mL oral concentrate 1 mg PO BID-QID PRN 09/04/17 [History Confirmed 09/08/17] escitalopram 10 mg tablet 10 mg PO QDAY 09/04/17 [History Confirmed 09/08/17] ipratropium-albuterol 0.5 mg-3 mg(2.5 mg base)/3 mL nebulization soln 3 ml INHALATION Q8H 09/04/17 [History Confirmed 09/08/17] krill mni-rj-2-stg-lyk-qrkwvwjtijafw 500 mg-115 mg-30 mg-64 mg capsule cap PO 09/04/17 [History Confirmed 09/08/17] losartan 50 mg tablet 50 mg PO QDAY 09/04/17 [History Confirmed 09/08/17] multivitamin capsule 1 cap PO QDAY 09/04/17 [History Confirmed 09/08/17] tramadol 50 mg tablet 50 mg PO Q6H 09/04/17 [History Confirmed 09/08/17] PFSH Medical History Anxiety (Acute) Diverticulitis (Acute) L knee meniscus (Acute) Lower back pain (Acute) Pain in left acromioclavicular joint (Acute) Surgical History History of appendectomy (Acute) Family History Mother CAD (coronary artery disease) COPD (chronic obstructive pulmonary disease) Heart disease Hypertension Myocardial infarction Sudden cardiac Father Cancer Hypertension Brother Cancer Hypertension Grandfather Sudden cardiac Uncle Heart disease Social History adopted: No household members: spouse housing: house number of children: 0 current occupational status: other current occupation: [employer] current occupational exposures/hazards: No pets and animals: Yes leisure activities: sports, exercise, music, games, hunting, fishing, reading, volunteer work details: [employer] history of recent travel: Yes other: [facility] Smoking Status: Never smoker second hand exposure: Yes quit status: has quit before alcohol intake: current alcohol intake frequency: a few times a week Alcohol type: wine substance use type: does not use well-balanced diet: about half the time caffeine: Yes eating out: 1-3 times/week during the past year weight has: remained stable what type of physical activity do you participate in: walking, swimming, weight training frequency: 3-4 times per week duration: 45-60 minutes/day seatbelt use: always do you feel safe at home: Yes HPI HPI (General) HPI HPI: JOSE JOHNSON, is a 52 M who presents to the office today for Office Meds testosterone cypionate Performing Provider: ASIM Ayala Administered by: Mignon Dukes on 10/13/17 18:49 Dose Route Admin Location Lot Number Expiration Date NDC Sustainability Project Coordinator 100 mg IM RIGHT ARM [id number] 09/09/19 8217-4960-79 [facility] Assessment AND Plan Orders Orders: Medications Discontinued: testosterone cypionate Discontinued Reason:100 mg (0.5 mL) IM ONCE E29.1 Mignon Dukes Office Medication has been Documented as giv en 10/14/17 1305 <Electronically signed by Machelle DAILEY> Date Machelle DAILEY CC: OFFICE VISIT Observed: 10/07/2017 Status: F Source: [place] 10:52 AM [facility] REPOSITORY After Hours Family Medicine [address] [place] [address] OFFICE VISIT Date of Service: 10/02/17 MR#: [id number] Acct: [id number] Name: JOSE JOHNSON Rep #: [id number] : 1965 Provider: MARY Espitia Age/Sex: 52/M Location: [facility] Status: Signed Intake Intake Visit Reasons: TEST BW Allergies lisinopril Allergy (Intermediate, Verified 09/04/17 10:27) cough codeine Adverse Reaction (Verified 09/03/17 15:55) STOMACH PAIN Medications alprazolam 0.5 mg tablet 0.5 mg PO BID PRN #60 tab 09/03/17 [Rx Confirmed 09/08/17] diazepam 5 mg/mL oral concentrate 1 mg PO BID-QID PRN 09/04/17 [History Confirmed 09/08/17] escitalopram 10 mg tablet 10 mg PO QDAY 09/04/17 [History Confirmed 09/08/17] ipratropium-albuterol 0.5 mg-3 mg(2.5 mg base)/3 mL nebulization soln 3 ml INHALATION Q8H 09/04/17 [History Confirmed 09/08/17] krill cpx-ju-9-ryu-xxj-kqmcdkdsadpko 500 mg-115 mg-30 mg-64 mg capsule cap PO 09/04/17 [History Confirmed 09/08/17] losartan 50 mg tablet 50 mg PO QDAY 09/04/17 [History Confirmed 09/08/17] multivitamin capsule 1 cap PO QDAY 09/04/17 [History Confirmed 09/08/17] tramadol 50 mg tablet 50 mg PO Q6H 09/04/17 [History Confirmed 09/08/17] PFSH Medical History Anxiety (Acute) Diverticulitis (Acute) L knee meniscus (Acute) Lower back pain (Acute) Pain in left acromioclavicular joint (Acute) Surgical History History of appendectomy (Acute) Family History Mother CAD (coronary artery disease) COPD (chronic obstructive pulmonary disease) Heart disease Hypertension Myocardial infarction Sudden cardiac Father Cancer Hypertension Brother Cancer Hypertension Grandfather Sudden cardiac Uncle Heart disease Social History adopted: No household members: spouse housing: house number of children: 0 current occupational status: other current occupation: [employer] current occupational exposures/hazards: No pets and animals: Yes leisure activities: sports, exercise, music, games, hunting, fishing, reading, volunteer work details: [facility] history of recent travel: Yes other: [place] [employer] Smoking Status: Never smoker second hand exposure: Yes quit status: has quit before alcohol intake: current alcohol intake frequency: a few times a week Alcohol type: wine substance use type: does not use well-balanced diet: about half the time caffeine: Yes eating out: 1-3 times/week during the past year weight has: remained stable what type of physical activity do you participate in: walking, swimming, weight training frequency: 3-4 times per week duration: 45-60 minutes/day seatbelt use: always do you feel safe at home: Yes HPI HPI (General) HPI HPI: JOSE JOHNSON, is a 52 M who presents to the office today for 10/07/17 1052 <Electronically signed by Machelle DAILEY> Date Machelle DAILEY CC: CBC W/DIFF, AUTOMATED Collected: 10/02/2017 Status: F Source: [place] 9:50 AM [facility] REPOSITORY TYPE CODE TESTS RESULT OUT OF RANGE REFERENCE UNITS LAB L100.1000 4.4-11.0 K/mm3 Normal WBC 10.6 LAB L100.1200 4.6-6.2 M/mm3 Normal RBC 5.27 LAB L100.1300 13.0-16.5 g/dl High HGB 16.6 LAB L100.1400 40-54 % Normal HCT 49.7 LAB L100.1500 80-94 fL High MCV 94.3 LAB L100.1600 27.0-32.0 pg Normal MCH 31.5 LAB L100.1700 32-36 g/gl Normal MCHC 33.4 LAB L100.1810 11.6-14.6 % High RDW CV 14.7 LAB L100.1820 35.1-43.9 fl High RDW SD 49.8 LAB L100.1900 150-450 K/mm3 Normal PLT 270 LAB L100.2000 6.2-12.0 fl Normal MPV 11.7 LAB L100.2100 47-70 % High NEUT% 74.5 LAB L100.2200 19-41 % Low LY% 9.2 LAB L100.2300 0-10 % Normal MONO% 8.8 LAB L100.2400 0-5 % High EO% 6.7 LAB L100.2500 0-1 % Normal BASO% 0.5 LAB L100.2550 0.0-0.9 % Normal IM GRAN % 0.300 Result Comment: IG% - Immature Granulocytes (promyelocytes, myelocytes and metamyelocytes) > 1% indicates that a LEFT SHIFT is Present. LAB L100.2620 2.0-7.7 X10 3/uL High Absolute Neut 7.9 LAB L100.2720 0.83-4.51 X10 3/ul Normal Absolute Lymph 0.97 Performed By: #### L100.0100 #### [facility] [address] [place], [place], [address] PSA,TOTAL - ANNUAL Collected: 10/02/2017 Status: F Source: [place] SCREEN 9:50 AM [facility] REPOSITORY TYPE CODE TESTS RESULT OUT OF RANGE REFERENCE UNITS LAB L501.9910 0.00-4.00 ng/mL Normal PSA,TOT 1.92 SCREEN Result Comment: This test was performed using the TPSA assay method for the [employer] chemistry system. Values obtained with different assay methods cannot be used interchangably. When changing PSA assays in the course of monitoring a patient, additional sequential testing should be carried out to confirm baseline values. Performed By: #### L501.9910 #### [facility] [address]. [place], [place], [address] TESTOSTERONE, SERUM TOTAL Collected: 10/02/2017 Status: F Source: [place] 9:50 AM [facility] REPOSITORY TYPE CODE TESTS RESULT OUT OF REFERENCE UNITS RANGE LAB L509.3000 ng/dL Testosterone Normal 269.99 Result Comment: NORMAL REFERENCE RANGES MALE AGE <50 123.06 - 813.86 ng/dL MALE AGE >50 89.98 - 780.10 ng/dL FEMALE PREMENOPAUSE AGE 21 - 60 9.01 - 47.94 ng/dL FEMALE POSTMENOPAUSE AGE 45 - 89 <7.00 - 45.62 ng/dL REFERENCE RANGE AND METHODOLOGY CHANGED 01/27/2017 Performed By: #### L509.3000 #### [facility] [address] [place], [place], [address] OFFICE VISIT Observed: 10/01/2017 Status: F Source: [place] 9:44 PM [facility] REPOSITORY After Hours Family Medicine [address] [place] [address] OFFICE VISIT Date of Service: 10/01/17 MR#: [id number] Acct: [id number] Name: JOSE JOHNSON Rep #: [id number] : 1965 Provider: MARY Espitia Age/Sex: 52/M Location: [facility] Status: Signed Intake Intake Visit Reasons: kenelog inj Allergies lisinopril Allergy (Intermediate, Verified 09/04/17 10:27) cough codeine Adverse Reaction (Verified 09/03/17 15:55) STOMACH PAIN Medications alprazolam 0.5 mg tablet 0.5 mg PO BID PRN #60 tab 09/03/17 [Rx Confirmed 09/08/17] diazepam 5 mg/mL oral concentrate 1 mg PO BID-QID PRN 09/04/17 [History Confirmed 09/08/17] escitalopram 10 mg tablet 10 mg PO QDAY 09/04/17 [History Confirmed 09/08/17] ipratropium-albuterol 0.5 mg-3 mg(2.5 mg base)/3 mL nebulization soln 3 ml INHALATION Q8H 09/04/17 [History Confirmed 09/08/17] krill tmt-tr-6-ssg-biu-sternmulaqofe 500 mg-115 mg-30 mg-64 mg capsule cap PO 09/04/17 [History Confirmed 09/08/17] losartan 50 mg tablet 50 mg PO QDAY 09/04/17 [History Confirmed 09/08/17] multivitamin capsule 1 cap PO QDAY 09/04/17 [History Confirmed 09/08/17] tramadol 50 mg tablet 50 mg PO Q6H 09/04/17 [History Confirmed 09/08/17] PFSH Medical History Anxiety (Acute) Diverticulitis (Acute) L knee meniscus (Acute) Lower back pain (Acute) Pain in left acromioclavicular joint (Acute) Surgical History History of appendectomy (Acute) Family History Mother CAD (coronary artery disease) COPD (chronic obstructive pulmonary disease) Heart disease Hypertension Myocardial infarction Sudden cardiac Father Cancer Hypertension Brother Cancer Hypertension Grandfather Sudden cardiac Uncle Heart disease Social History adopted: No household members: spouse housing: house number of children: 0 current occupational status: other current occupation: [employer] current occupational exposures/hazards: No pets and animals: Yes leisure activities: sports, exercise, music, games, hunting, fishing, reading, volunteer work details: [employer] history of recent travel: Yes other: [facility] Smoking Status: Never smoker second hand exposure: Yes quit status: has quit before alcohol intake: current alcohol intake frequency: a few times a week Alcohol type: wine substance use type: does not use well-balanced diet: about half the time caffeine: Yes eating out: 1-3 times/week during the past year weight has: remained stable what type of physical activity do you participate in: walking, swimming, weight training frequency: 3-4 times per week duration: 45-60 minutes/day seatbelt use: always do you feel safe at home: Yes HPI HPI (General) HPI HPI: JOSE JOHNSON, is a 52 M who presents to the office today for Office Meds triamcinolone acetonide Performing Provider: ASIM Ayala Administered by: Tanya Jackson on 10/01/17 15:43 Dose Route Admin Location Lot Number Expiration Date NDC Sustainability Project Coordinator 60 mg IM right hip [id number] 02/08/19 [id number] unknown Assessment AND Plan Orders Orders: Medications Discontinued: triamcinolone acetonide Discontinued Reason:60 mg (1.5 mL) IM ONCE Z88.9 Tanya Jackson Office Medication has been Documented as give n 10/01/17 2144 <Electronically signed by Machelle DAILEY> Date Machelle DAILEY CC: OFFICE VISIT Observed: 09/21/2017 Status: F Source: [place] 2:06 PM [facility] REPOSITORY After Hours Family [facility] [address] [place] [address] OFFICE VISIT Date of Service: 09/03/17 MR#: [id number] Acct: [id number] Name: ADAMARISJOSE FISHER Rep #: [id number] : 1965 Provider: MARY Espitia Age/Sex: 52/M Location: [facility] Status: Signed Intake Vital Signs09/03/17 Blood Pressure Location Rt brachial 09/03/17 Blood Pressure Position Sitting 09/03/17 Temp Source Surface 09/03/17 Pulse Source Monitor 09/03/17 Oxygen Delivery Method room air Intake Visit Reasons: L SHOULDER PAIN, RX REFILL Is patient in pain?: Yes Allergies lisinopril Allergy (Intermediate, Verified 09/04/17 10:27) cough codeine Adverse Reaction (Verified 09/03/17 15:55) STOMACH PAIN Medications alprazolam 0.5 mg tablet 0.5 mg PO BID PRN #60 tab 09/03/17 [Rx Confirmed 09/08/17] diazepam 5 mg/mL oral concentrate 1 mg PO BID-QID PRN 09/04/17 [History Confirmed 09/08/17] escitalopram 10 mg tablet 10 mg PO QDAY 09/04/17 [History Confirmed 09/08/17] ipratropium-albuterol 0.5 mg-3 mg(2.5 mg base)/3 mL nebulization soln 3 ml INHALATION Q8H 09/04/17 [History Confirmed 09/08/17] krill gly-xd-1-dgl-aok-jwdajhxxwbbjh 500 mg-115 mg-30 mg-64 mg capsule cap PO 09/04/17 [History Confirmed 09/08/17] losartan 50 mg tablet 50 mg PO QDAY 09/04/17 [History Confirmed 09/08/17] multivitamin capsule 1 cap PO QDAY 09/04/17 [History Confirmed 09/08/17] tramadol 50 mg tablet 50 mg PO Q6H 09/04/17 [History Confirmed 09/08/17] Nurse's Note: PT STATED L SHOULDER CAUSING PAIN 6 AT REST 10 WHEN MOVING. CONSTANT DULL ACHING AND CERTAIN MOVEMENT CAUSES MORE PAIN. 6+WEEKS PAIN HAS BEEN PRESENT. PT STATED THE PAIN IS GETTING EASIER TO DEAL WITH. - MI PFSH Medical History Anxiety (Acute) Diverticulitis (Acute) L knee meniscus (Acute) Lower back pain (Acute) Pain in left acromioclavicular joint (Acute) Surgical History History of appendectomy (Acute) Family History Mother CAD (coronary artery disease) COPD (chronic obstructive pulmonary disease) Heart disease Hypertension Myocardial infarction Sudden cardiac Father Cancer Hypertension Brother Cancer Hypertension Grandfather Sudden cardiac Uncle Heart disease Social History adopted: No household members: spouse housing: house number of children: 0 current occupational status: other current occupation: [employer] current occupational exposures/hazards: No pets and animals: Yes leisure activities: sports, exercise, music, games, hunting, fishing, reading, volunteer work details: [facility] history of recent travel: Yes other: [facility] Smoking Status: Never smoker second hand exposure: Yes quit status: has quit before alcohol intake: current alcohol intake frequency: a few times a week Alcohol type: wine substance use type: does not use well-balanced diet: about half the time caffeine: Yes eating out: 1-3 times/week during the past year weight has: remained stable what type of physical activity do you participate in: walking, swimming, weight training frequency: 3-4 times per week duration: 45-60 minutes/day seatbelt use: always do you feel safe at home: Yes HPI HPI (General) HPI HPI: JOSE JOHNSON, is a 52 M who presents to the office today for his anxiety and shoulder pain needs meds refilled ROS Const Constitutional: No anorexia, body ache, chills, excessive sweating, fatigue, fever(s), frequent falls, headache(s), decreased energy, malaise, night sweats, snoring, weakness, weight change, sleep problems, abnormal sleep pattern, change in appetite or other Eyes Eyes: No blurry vision, change in vision, double vision, discharge, dry eyes, bulging eyes, floaters, visual disturbances, eye pain, light sensitivity, spots in vision, tunnel vision or other ENT ENT: No headache(s), abnormal hearing, ear pain, ear discharge, ear pressure, hearing loss, tinnitus, dizziness/vertigo, balance problems, nosebleed/epistaxis, nasal congestion, nasal obstruction, nose pain, sinus pressure, sinus pain, nasal discharge, post nasal drip, facial pain, dental pain, dry mouth, difficulty swallowing, bad breath, hoarseness, lip swelling, mouth lesions, mouth pain, neck pain, sore throat, tongue swelling, throat swelling or other Resp Respiratory: No snoring, cough, change in phlegm color, chest congestion, excessive phlegm production, hemoptysis, pain on inspiration, shortness of breath, pain with cough, stridor, wheezing or other Cardio Cardiology: No excessive sweating, chest pain at rest, chest pain with exertion, leg pain with exertion, shortness of breath, dyspnea on exertion, generalized swelling, irregular heart rhythm, lightheadedness, orthopnea, radiating jaw, neck or arm pain, fast heart rate, slow heart rate, palpitations or other Gastro GI: No other, No Difficulty Swallowing, No abdominal pain, No belching, No bloating, No change in bowel habits, No change in stool character, No coffee ground emesis, No constipation, No cramping, No diarrhea, No heartburn, No feeling full early, No excessive flatus, No incontinent of stools, No Vomiting blood/hematemesis, No Blood in stool, No loose stools, No Black,tarry stools, No nausea/dyspepsia, No pain with swallowing, No vomiting, No hemorrhoids, No rectal pain Genitourinary: No other, urinary frequency, difficulty urinating, burning urination, painful urination, urinary urgency or blood in urine Musc Musculoskeletal: Positive for joint pain (shoulders ); no neck pain, abnormal walking, numbness or tingling Skin Skin: No acne, hair loss, change in hair, nail changes, boil, change in skin color, dry skin, redness, excessive hair growth, yellowing of the skin, lesions, itching, rash, skin pain, skin ulcer, sores, skin swelling, wounds or other Breast Breast: No other Neuro Neurology: No frequent falls, headache(s), weakness, visual disturbances, abnormal hearing, abnormal walking, abnormal movements, abnormal speech, behavioral changes, confusion, unsteady gait/balance, dizziness, lack of coordination, loss of vision, memory loss, numbness, tingling, restless legs, fainting, tremor(s) or other Psych Psychiatric: No abnormal sleep pattern, No change in appetite, No behavioral changes, No confusion, No memory loss, Positive for anxiety, Positive for difficulty concentrating Endo Endo: No excessive sweating, No fatigue, No other Aller/Imm Allergy/Immunologic: No lip swelling, tongue swelling, throat swelling, wheezing or itchy eyes Exam Const Constitutional: Yes cooperative, Yes healthy appearing Orientation: Yes alert, awake and oriented x3 HENMT Head: Yes normocephalic Ear: Yes hearing grossly normal bilaterally Neck Neck: normal visual inspection Thyroid: thyroid normal Eyes General: Yes appearance normal, both eyes and all related structures Chest Chest palpation AND inspection: Yes normal inspection of the chest Resp Effort AND Inspection: No stridor Auscultation: Yes clear to auscultation bilaterally Cardio Palpitation: Yes normal PMI Rate: Yes regular rate Rhythm: Yes regular rhythm GI Inspection: Yes normal to inspection Auscultation: Yes normal bowel sounds Rectal Exam: No hemorrhoids Musc Cervical Spine: Yes cervical ROM normal Thoracic/Lumbar Spine: Yes thoracic and lumbar spine normal to inspection Skin General: no rashes or lesions noted Lesions: Yes no lesions Extrem General: Yes normal to inspection Neuro General: Yes alert and oriented x3 Motor: No weakness Psych Appearance: Positive grossly normal Mood: Positive congruent mood Affect: Positive normal affect Assessment AND Plan Problems 1. Disorder of AC joint of shoulder M19.019 2. Anxiety F41.9 Patient Instructions Take the anxiety meds as needed continue the regular daily meds as prescribed Get the x-ray done KRISHNA Will call with the results Medications New: 09/21/17 1406 <Electronically signed by Machelle DAILEY> Date Machelle DAILEY CC: OFFICE VISIT Observed: 09/21/2017 Status: F Source: [place] 12:[address] [facility] [place] [place] After Hours Family [facility] [address] [place] [address] OFFICE VISIT Date of Service: 09/08/17 MR#: [id number] Acct: [id number] Name: JOSE JOHNSON Rep #: [id number] : 1965 Provider: Naa Prabhakar RN Age/Sex: 52/M Location: [facility] Status: Signed Intake Intake Visit Reasons: TEST INJ Allergies lisinopril Allergy (Intermediate, Verified 09/04/17 10:27) cough codeine Adverse Reaction (Verified 09/03/17 15:55) STOMACH PAIN Medications alprazolam 0.5 mg tablet 0.5 mg PO BID PRN #60 tab 09/03/17 [Rx Confirmed 09/08/17] diazepam 5 mg/mL oral concentrate 1 mg PO BID-QID PRN 09/04/17 [History Confirmed 09/08/17] escitalopram 10 mg tablet 10 mg PO QDAY 09/04/17 [History Confirmed 09/08/17] ipratropium-albuterol 0.5 mg-3 mg(2.5 mg base)/3 mL nebulization soln 3 ml INHALATION Q8H 09/04/17 [History Confirmed 09/08/17] krill bkd-jn-6-cla-jkr-ohdyeqysmopii 500 mg-115 mg-30 mg-64 mg capsule cap PO 09/04/17 [History Confirmed 09/08/17] losartan 50 mg tablet 50 mg PO QDAY 09/04/17 [History Confirmed 09/08/17] multivitamin capsule 1 cap PO QDAY 09/04/17 [History Confirmed 09/08/17] tramadol 50 mg tablet 50 mg PO Q6H 09/04/17 [History Confirmed 09/08/17] PFSH Medical History Anxiety (Acute) Diverticulitis (Acute) L knee meniscus (Acute) Lower back pain (Acute) Pain in left acromioclavicular joint (Acute) Surgical History History of appendectomy (Acute) Family History Mother CAD (coronary artery disease) COPD (chronic obstructive pulmonary disease) Heart disease Hypertension Myocardial infarction Sudden cardiac Father Cancer Hypertension Brother Cancer Hypertension Grandfather Sudden cardiac Uncle Heart disease Social History adopted: No household members: spouse housing: house number of children: 0 current occupational status: other current occupation: [employer] current occupational exposures/hazards: No pets and animals: Yes leisure activities: sports, exercise, music, games, hunting, fishing, reading, volunteer work details: [facility] [facility] history of recent travel: Yes other: [facility] Smoking Status: Never smoker second hand exposure: Yes quit status: has quit before alcohol intake: current alcohol intake frequency: a few times a week Alcohol type: wine substance use type: does not use well-balanced diet: about half the time caffeine: Yes eating out: 1-3 times/week during the past year weight has: remained stable what type of physical activity do you participate in: walking, swimming, weight training frequency: 3-4 times per week duration: 45-60 minutes/day seatbelt use: always do you feel safe at home: Yes HPI HPI (General) HPI HPI: JOSE JOHNSON, is a 52 M who presents to the office today for Office Meds testosterone cypionate Performing Provider: ASIM Ayala Administered by: Mignon Dukes on 09/08/17 19:12 Dose Route Admin Location Lot Number Expiration Date NDC Sustainability Project Coordinator 100 mg IM RIGHT ARM [id number] 09/09/19 [id number] PFIZER testosterone cypionate Performing Provider: ASIM Ayala Documented (not given) by: Mignon Dukes on 09/08/17 19:17 Assessment AND Plan Orders Orders: Medications Discontinued: testosterone cypionate Discontinued Reason:100 mg (0.5 mL) IM ONCE E29.1 Mignon Dukes Office Medication has been Documented as giv en 09/21/17 1200 <Electronically signed by Machelle DAILEY> Date Machelle DAILEY CC: CR CHEST PA/LAT Observed: 04/18/2017 Status: F Source: [facility] 7:54 PM SYSTEM REPOSITORY Patient Name: JOSE JOHNSON Diagnostic Radiology Exam Date/Time 04/18/2017 19:48:04 EDT Exam CR Chest PA/LAT Ordering Physician SONY PEREZ Accession Number [id number] CPT4 Codes 65967 () Reason For Exam COUGH-WHEEZING Report CHEST: Indication: 51-year-old; cough and wheezing Views: Frontal and lateral Comparison: 10/22/2014 Time: 19:48 FINDINGS: The trachea is midline. The cardiomediastinal silhouette is within normal limits. There is coarsening of the interstitium bilaterally. No pleural effusion, pneumothorax, or confluent consolidation. The ely appear similar to prior imaging. IMPRESSION: No acute cardiopulmonary process. Chronic coarsening of the interstitium. Report Dictated on Final Dictated: 04/18/2017 7:54 pm Dictating Physician: MD RANDHAWA JENNIFER R Signed Date and Time: 04/18/2017 7:55 pm Signed by: MD SYDNEE, DELLA Martinez Transcribed Date and Time: 04/18/2017 7:54 ALLERGIES ALLERGIES DATE TYPE / CODE NAME / CODE REACTION SEVERITY SOURCE 09/04/2017 Drug lisinopril/F cough [place] [facility] Allergy/4160 [id number]( Hospital [address]80(SNOMED NORM) Repository CT) 09/03/2017 Drug codeine/F006 STOMACH PAIN Unknown [facility] Allergy/4160 540260(RXR Hospital 70658(SNOMED M) Repository CT) ENCOUNTERS ENCOUNTERS ADMIT/DISCHARGE ACCOUNT NUMBER ADMITTING ENCOUNTER LOCATION SOURCE CLASS 01/04/2018 [id number] [facility] ding:LABSPEC Repository 12/18/2017 [id number] [facility] ding:[facility]SPEC Repository 11/13/2017 [id number] [facility] ding:[facility]SPEC Repository 10/02/2017 [id number] [facility] ding:[facility]SPEC Repository 04/18/2017 [id number] [facility] [place] [address] EMRoom: System 1DEMRBed: Repository [id number] PAYERS PAYERS ENCOUNTER GUARANTOR PAYER SUBSCRIBER SOURCE 01/04/2018 JOSE Primary Insurance:[facility] JAYDA SOMMERAL62 ALL SAVERS [facility] BRIDENTHALDOB: Counts include 234 beds at the [facility] Number: [id number], [id number] Repository [place] [address]Bkx: [phone]) Date:1031-34-99GE [phone] () [id number] [address]ZK: 01/04/2018 Secondary NOT GIVENUNK Edward Insurance:SELF PAY [facility] Number: Effective Repository Date:2018-01-04 12/18/2017 JOSE Primary JAYDA Edward [id number] Insurance:SIGNIFICA BRIDENTHALDOB: [facility] [id number] Foundation Hospital, Number: Repository [place] [address]Jmj: [phone] [id number] [phone] (HP) Date:3999-37-47[address]ER [place] [address]PS: 12/18/2017 Secondary NOT GIVENUNK Arley Insurance:SELF PAY [facility] Number: Effective Repository Date:2017-12-18 11/13/2017 JOSE Leon [id number] Insurance:[employer] BRIDENTHALDOB: [facility] [address]Dgtiwj [id number] Foundation Hospital, Number: [place]ository [place] [address]Wln: [phone] [id number] [phone] (HP) Date:8567-10-02LQ [address] [place] [id number]: 11/13/2017 Secondary NOT GIVENUNK Arley Insurance:SELF PAY [facility] Number: Effective Repository Date:2017-11-13 10/02/[address] [facility] JAYDA [place] [id number] Insurance:[employer] BRIDENTHALDOB: [facility] [address]Dwavro [id number], Number: [place]ository [place] [id number]: [phone] [id number] [phone] (HP) Date:2423-20-12[address], [place] [address]VZ: 10/02/2017 Secondary NOT GIVENUNK Arley Insurance:SELF PAY [facility] Number: Effective Repository Date:2017-10-02 04/18/2017 Jose [facility] Jayda [facility] BridenthalDOB: Insurance:United BridenthalDOB: System [facility] [id number] Repository Formerly named [facility] Number: Effective [place], [place] [address]Fnz: Date: (HP)
== END ==
PROVIDERS: Referring Provider Nurse Practitioner; Visit Provider Nurse Practitioner
DX: E78.00 Pure hypercholesterolemia, unspecified (principal)
CPT/HCPCS: 80061

== ENCOUNTER → 2018-06-19 01:38 | Outpatient (CLI) | payer OTHER, SELFPAY ==
[2018-06-09 18:59] VITALS: BMI 31.6
[2018-06-19 02:25] LABS: Absolute Lymphocyte Count 0.84 X10^3/ul (0.83-4.51); Absolute Neutrophil Count 8.1 X10^3/uL (2.0-7.7); Basophil# 0.04 X10^3/uL; Basophil% 0.4 % (0-1); Eosinophil# 0.43 X10^3/uL; Eosinophils% 4.2 % (0-5); Hemoglobin 13.8 g/dl (13.0-16.5); Lymphocyte # 0.84 X10^3/ul (4.0); Lymphocyte % 8.1 % (19-41); Mean Corp Hgb Conc 32.1 g/gl (32-36); Mean Corpuscular Hgb 30.7 pg (27.0-32.0); Mean Corpuscular Volume 95.8 fL (80-94); Mean Platelet Vol. 11.6 fl (6.2-12.0); Monocyte# 0.83 X10^3/uL; Monocyte% 8.1 % (0-10); Neutrophil # 8.05 X10^3/uL (2.7-7.7); Platelet Count 316 K/mm3 (150-450); RBC Distribution Width CV 15.8 % (11.6-14.6); RBC Distribution Width SD 54.5 fl (35.1-43.9); Red Blood Count 4.49 M/mm3 (4.6-6.2); White Blood Count 10.3 K/mm3 (4.4-11.0)
[2018-06-19 02:26] LABS: Differential Indicated SCAN CRITERIA MET; POSITIVE COUNT NO; POSITIVE DIFFERENTIAL NO; POSITIVE MORPHOLOGY YES
[2018-06-19 02:32] LABS: PSA,Total- Diagnostic 1.17 ng/mL (0.0-4.0)
[2018-06-22 13:31] LABS: Testosterone Free 17.9 pg/mL (7.2-24.0)
== END ==
PROVIDERS: Visit Provider Nurse Practitioner
DX: E29.1 Testicular hypofunction (principal)
CPT/HCPCS: 84153; 84402; 85025

== ENCOUNTER → 2018-08-20 16:36 | Outpatient (CLI) | payer OTHER, SELFPAY ==
[2018-08-09 17:42] VITALS: BMI 31.7
[2018-08-20 16:45] LABS: Absolute Lymphocyte Count 0.78 X10^3/ul (0.83-4.51); Absolute Neutrophil Count 6.1 X10^3/uL (2.0-7.7); Basophil# 0.04 X10^3/uL; Basophil% 0.5 % (0-1); Eosinophil# 0.61 X10^3/uL; Eosinophils% 7.1 % (0-5); Hematocrit 47.9 % (40-54); Lymphocyte # 0.78 X10^3/ul (4.0); Lymphocyte % 9.1 % (19-41); Mean Corp Hgb Conc 31.3 g/gl (32-36); Mean Corpuscular Hgb 28.2 pg (27.0-32.0); Mean Platelet Vol. 12.3 fl (6.2-12.0); Monocyte% 10.5 % (0-10); Neutrophil # 6.11 X10^3/uL (2.7-7.7); Neutrophil % 71.6 % (47-70); Platelet Count 212 K/mm3 (150-450); RBC Distribution Width CV 15.2 % (11.6-14.6); RBC Distribution Width SD 49.3 fl (35.1-43.9); Red Blood Count 5.32 M/mm3 (4.6-6.2); White Blood Count 8.5 K/mm3 (4.4-11.0)
[2018-08-20 16:46] LABS: POSITIVE COUNT NO; POSITIVE DIFFERENTIAL NO; POSITIVE MORPHOLOGY NO
[2018-08-24 11:01] LABS: Testosterone Free 11.3 pg/mL (7.2-24.0)
== END ==
PROVIDERS: Visit Provider Nurse Practitioner
DX: E29.1 Testicular hypofunction (principal)
CPT/HCPCS: 84153; 84402; 85025

== ENCOUNTER → 2018-11-12 20:34 | Outpatient (CLI) | payer OTHER, SELFPAY ==
[2018-11-12 12:41] VITALS: BMI 30.7
[2018-11-12 20:49] LABS: Absolute Neutrophil Count 8.2 X10^3/uL (2.0-7.7); Basophil# 0.06 X10^3/uL; Basophil% 0.6 % (0-1); Eosinophil# 0.21 X10^3/uL; Eosinophils% 2.1 % (0-5); Hematocrit 51.9 % (40-54); Hemoglobin 16.7 g/dL (13.0-16.5); Mean Corp Hgb Conc 32.2 g/dL (32-36); Mean Corpuscular Hgb 30.3 pg (27.0-32.0); Mean Platelet Vol. 12.6 fl (6.2-12.0); Monocyte# 0.76 X10^3/uL; Monocyte% 7.6 % (0-10); NRBC Flagged by Analyzer 0 % (0-5); Neutrophil % 82.3 % (47-70); Platelet Count 257 K/mm3 (150-450); RBC Distribution Width CV 14.2 % (11.6-14.6); RBC Distribution Width SD 49.1 fl (35.1-43.9); Red Blood Count 5.52 M/mm3 (4.6-6.2)
[2018-11-12 21:02] LABS: Cholesterol 202 mg/dL (200); High Density Lipoprotein 35 mg/dL; PSA,Total- Diagnostic 1.77 ng/mL (0.0-4.0); Triglycerides 381 mg/dL; Very Low Density Lipoprotein 76 mg/dL (5-40)
[2018-11-16 13:09] LABS: Testosterone Free 1.7 pg/mL (7.2-24.0)
== END ==
LOC: OLS.AHF 20:37 → LABSPEC 11-14 12:48
PROVIDERS: Visit Provider Nurse Practitioner
DX: R79.89 Other specified abnormal findings of blood chemistry (principal); E78.5 Hyperlipidemia, unspecified
CPT/HCPCS: 80061; 84153; 84402; 85025

== ENCOUNTER → 2019-11-22 21:39 | Outpatient (CLI) | payer OTHER, SELFPAY ==
[2019-11-22 18:34] VITALS: BMI 29.9
[2019-11-22 21:49] LABS: Absolute Lymphocyte Count 0.63 X10^3/uL (0.83-4.51); Absolute Neutrophil Count 7.7 X10^3/uL (2.0-7.7); Basophil# 0.07 X10^3/uL; Basophil% 0.7 % (0-1); Eosinophil# 0.52 X10^3/uL; Eosinophils% 5.5 % (0-5); Hematocrit 45.2 % (40-54); Hemoglobin 14.5 g/dL (13.0-16.5); Lymphocyte # 0.63 X10^3/ul (4.0); Lymphocyte % 6.6 % (19-41); Mean Corp Hgb Conc 32.1 g/dL (32-36); Mean Corpuscular Hgb 30.1 pg (27.0-32.0); Mean Platelet Vol. 12.1 fl (6.2-12.0); Monocyte# 0.61 X10^3/uL; Monocyte% 6.4 % (0-10); NRBC Flagged by Analyzer 0 % (0-5); Neutrophil # 7.65 X10^3/uL (2.7-7.7); Neutrophil % 80.3 % (47-70); Platelet Count 232 K/mm3 (150-450); RBC Distribution Width CV 13.4 % (11.6-14.6); RBC Distribution Width SD 46.3 fl (35.1-43.9); Red Blood Count 4.81 M/mm3 (4.6-6.2); White Blood Count 9.5 K/mm3 (4.4-11.0)
[2019-11-22 22:08] LABS: ALB/GLOB Ratio 1.1 RATIO (0.9-2.4); AST(SGOT) 20 U/L (15-37); Alanine Aminotransfer ALT/SGPT 52 U/L (16-61); Albumin, Serum 3.8 g/dL (3.2-5.0); Alkaline Phosphatase 81 U/L (45-117); Anion Gap 5 (5-15); BUN 19 mg/dL (7-18); BUN/Creat Ratio 17.4 RATIO (10-20); Calcium,Total 9.4 mg/dL (8.5-10.1); Chloride 104 mmol/L (98-107); Cholesterol 213 mg/dL (200); Creatinine, Serum 1.09 mg/dL (0.70-1.30); EST Glomerular Filtration Rate 75 mL/min (>60); Est Glom Filt Rate - Afr Amer 91 mL/min (>60); Globulin 3.5 g/dL (2.2-4.2); Glucose 119 mg/dL (74-106); High Density Lipoprotein 42 mg/dL; Potassium 3.9 mmol/L (3.5-5.1); Protein, Total 7.3 g/dL (6.4-8.2); Sodium Level 139 mmol/L (136-145); Triglycerides 152 mg/dL; Very Low Density Lipoprotein 30 mg/dL (5-40)
== END ==
LOC: OLS.AHF 21:41 → LABSPEC 11-23 07:43
PROVIDERS: Referring Provider Nurse Practitioner; Visit Provider Nurse Practitioner
DX: E78.00 Pure hypercholesterolemia, unspecified (principal); R35.0 Frequency of micturition; I10 Essential (primary) hypertension
CPT/HCPCS: 80053; 80061; 84153; 85025; G0103

== ENCOUNTER → 2020-12-02 23:00 | Outpatient (CLI) | payer OTHER, SELFPAY ==
[2020-12-02 23:26] LABS: ALB/GLOB Ratio 1.1 RATIO (0.9-2.4); AST(SGOT) 14 U/L (15-37); Alanine Aminotransfer ALT/SGPT 49 U/L (16-61); Albumin, Serum 3.8 g/dL (3.2-5.0); Alkaline Phosphatase 73 U/L (45-117); Anion Gap 9 (5-15); BUN 22 mg/dL (7-18); BUN/Creat Ratio 20.8 RATIO (10-20); Calcium,Total 9.1 mg/dL (8.5-10.1); Chloride 101 mmol/L (98-107); Cholesterol 273 mg/dL (200); Creatinine, Serum 1.06 mg/dL (0.70-1.30); EST Glomerular Filtration Rate 77 mL/min (>60); Est Glom Filt Rate - Afr Amer 93 mL/min (>60); Globulin 3.5 g/dL (2.2-4.2); Glucose 101 mg/dL (74-106); High Density Lipoprotein 45 mg/dL; PSA,Total - Annual Screen 1.01 ng/mL (0.00-4.00); Potassium 3.7 mmol/L (3.5-5.1); Protein, Total 7.3 g/dL (6.4-8.2); Sodium Level 137 mmol/L (136-145); Triglycerides 345 mg/dL; Very Low Density Lipoprotein 69 mg/dL (5-40)
[2020-12-02 23:32] LABS: Absolute Lymphocyte Count 0.92 X10^3/uL (0.83-4.51); Absolute Neutrophil Count 11.5 X10^3/uL (2.0-7.7); Basophil# 0.07 X10^3/uL; Basophil% 0.5 % (0-1); Eosinophil# 0.14 X10^3/uL; Hematocrit 48.7 % (40-54); Hemoglobin 15.6 g/dL (13.0-16.5); Lymphocyte # 0.92 X10^3/ul (0.83-4.51); Lymphocyte % 6.6 % (19-41); Mean Corpuscular Hgb 29.2 pg (27.0-32.0); Mean Corpuscular Volume 91.2 fL (80-94); Mean Platelet Vol. 11.9 fl (6.2-12.0); Monocyte# 1.24 X10^3/uL; Monocyte% 8.9 % (0-10); NRBC Flagged by Analyzer 0 % (0-5); Neutrophil # 11.49 X10^3/uL (2.7-7.7); Neutrophil % 82.4 % (47-70); Platelet Count 275 K/mm3 (150-450); RBC Distribution Width CV 13.9 % (11.6-14.6); RBC Distribution Width SD 46.6 fl (35.1-43.9); Red Blood Count 5.34 M/mm3 (4.6-6.2); White Blood Count 13.9 K/mm3 (4.4-11.0)
== END ==
PROVIDERS: Referring Provider Nurse Practitioner; Visit Provider Nurse Practitioner
DX: Z00.00 Encounter for general adult medical examination without abnormal findings (principal); Z12.5 Encounter for screening for malignant neoplasm of prostate
CPT/HCPCS: 80053; 80061; 84153; 85025; G0103

== ENCOUNTER → 2021-11-24 | Outpatient (CLI) | payer OTHER, SELFPAY ==
[2021-11-24 22:49] LABS: Lyme Ab Screen Interpretation REF LAB
[2021-11-24 23:10] LABS: AST(SGOT) 20 U/L (15-37); Alanine Aminotransfer ALT/SGPT 52 U/L (16-61); Albumin, Serum 3.6 g/dL (3.2-5.0); Alkaline Phosphatase 66 U/L (45-117); Anion Gap 8 (5-15); BUN 28 mg/dL (7-18); BUN/Creat Ratio 25.9 RATIO (10-20); Calcium,Total 9.6 mg/dL (8.5-10.1); Chloride 105 mmol/L (98-107); Cholesterol 282 mg/dL (200); Creatinine, Serum 1.08 mg/dL (0.70-1.30); EST Glomerular Filtration Rate 75 mL/min (>60); Est Glom Filt Rate - Afr Amer 91 mL/min (>60); Globulin 3.5 g/dL (2.2-4.2); Glucose 114 mg/dL (74-106); High Density Lipoprotein 64 mg/dL; PSA,Total- Diagnostic 0.82 ng/mL (0.0-4.0); Potassium 4.4 mmol/L (3.5-5.1); Protein, Total 7.1 g/dL (6.4-8.2); Sodium Level 139 mmol/L (136-145); Triglycerides 225 mg/dL; Very Low Density Lipoprotein 45 mg/dL (5-40)
[2021-11-24 23:14] LABS: Absolute Lymphocyte Count 0.71 X10^3/uL (0.83-4.51); Absolute Neutrophil Count 13.9 X10^3/uL (2.0-7.7); Basophil# 0.04 X10^3/uL; Basophil% 0.2 % (0-1); Eosinophil# 0.01 X10^3/uL; Eosinophils% 0.1 % (0-5); Hematocrit 45.9 % (40-54); Hemoglobin 15.2 g/dL (13.0-16.5); Lymphocyte # 0.71 X10^3/ul (0.83-4.51); Lymphocyte % 4.3 % (19-41); Mean Corp Hgb Conc 33.1 g/dL (32-36); Mean Corpuscular Hgb 30.2 pg (27.0-32.0); Mean Corpuscular Volume 91.3 fL (80-94); Monocyte# 1.48 X10^3/uL; Monocyte% 9.1 % (0-10); NRBC Flagged by Analyzer 0 % (0-5); Neutrophil # 13.85 X10^3/uL (2.7-7.7); Neutrophil % 84.8 % (47-70); Platelet Count 275 K/mm3 (150-450); RBC Distribution Width CV 14.4 % (11.6-14.6); Red Blood Count 5.03 M/mm3 (4.6-6.2); White Blood Count 16.3 K/mm3 (4.4-11.0)
[2021-11-26 08:54] LABS: Lyme Scn Total Ab w/Rflx Negative (Negative)
== END | disposition home or self-care (01) ==
PROVIDERS: Visit Provider Nurse Practitioner
DX: Z00.00 Encounter for general adult medical examination without abnormal findings (principal); M25.50 Pain in unspecified joint
CPT/HCPCS: 80053; 80061; 84153; 85025; 86618